=== PATIENT | male | born 1950 | race Caucasian/White ===

== ENCOUNTER 2024-05-21 18:30 | Emergency (ER) | payer MEDICARE, BC, SELFPAY ==
[2024-05-21 17:54] LABS: % Basophils 0.6 % (0-2); % Eosinophils 1.9 % (0-6); % Immature Granulocytes 0.2 % (0-0.5); % Lymphocytes 18.6 % (20.5-51.1); % Monocytes 11.4 % (1.7-9.3); % Neutrophils 67.3 % (42.2-75.2); Absolute Eosinophils 0.1 10^3/uL (0-0.7); Absolute Monocytes 0.6 10^3/uL (0.1-0.6); Absolute Neutrophils 3.6 10^3/uL (1.4-6.5); Hematocrit 40.2 % (39.0-52.0); Mean Corp Hgb Conc. 34.8 g/dL (33.0-37.0); Mean Corpuscular Hgb 31.5 pg (27.0-31.0); Mean Corpuscular Volume 90.5 fL (80.0-94.0); Mean Platelet Volume 9.4 fL (7.4-10.4); Nucleated Red Blood Cells % 0 % (-); Platelet Count 174 10^3/uL (130-400); Red Blood Cell Count 4.44 10^6/uL (4.70-6.10); Red Cell Dist. Width 13.1 % (11.5-14.5); White Blood Cell Count 5.3 10^3/uL (4.8-10.8)
[2024-05-21 18:00] VITALS: BP 129/72
[2024-05-21 18:10] LABS: ALT (SGPT) 40 U/L (0-50); AST (SGOT) 39 U/L (17-59); Alkaline Phosphatase 62 U/L (38-126); Blood Urea Nitrogen 33 mg/dl (9-20); Calcium 9.7 mg/dl (8.4-10.2); Carbon Dioxide 29 mmol/L (22-30); Chloride 105 mmol/L (98-107); Estimated Creatinine Clearance 58 ml/min; Glucose 110 mg/dl (70-99); Potassium 3.9 mmol/L (3.5-5.1); Sodium 140 mmol/L (135-145); Total Bilirubin 0.6 mg/dl (0.2-1.3); Total Protein 6.7 g/dl (6.3-8.2); eGFR > 60.00
[2024-05-21 19:00] VITALS: BP 167/68
[2024-05-21 19:54] LABS: Troponin I < 0.012 ng/ml
--- NOTE | 2024-05-21 20:07 | ED.GENMED ---
History of Present Illness
<Clayton Cueto DO, Resident - Last Filed: 05/21/24 21:36>
General
Chief Complaint: Fainting/Passed Out
Source: patient and family
Time Seen by Provider: 05/21/24 19:45
History of Present Illness
History of Present Illness:
74-year-old male past medical history significant for previous syncopal episodes, hyperlipidemia and hypertension presents for a presumed syncopal episode. Patient reports this episode was witnessed where he fell onto his face. Patient reports not
taking any blood thinners. Patient reports that he was not eating or drinking much today, he felt a prodrome of flushing throughout his body he then went to walk outside to get some fresh air and then he subsequently passed out. Family reports
patient was diaphoretic after fainting and he regained consciousness within a few minutes. Patient reports he does not remember what happened however family reports that he was speaking to during this time. Family denies any tonic-clonic
movements, no tongue biting, no loss of bowel or bladder. Patient reports having previous syncopal episodes and he reports that these episodes felt similar to this. As for now patient is only reporting slight facial pain.
Past History
<Clayton Cueto DO, Resident - Last Filed: 05/21/24 21:36>
Past History
ED Past Medical History: HTN, Hypercholesterolemia and Other (Previous syncopal episodes)
Review of Systems
<Clayton Cueto DO, Resident - Last Filed: 05/21/24 21:36>
Review of Systems
Constitutional: Reports other (Flushing and diaphoresis)
EENT: Reports other (Nose pain)
Respiratory: Reports no symptoms
Cardiac: Reports no symptoms
ABD/GI: Reports no symptoms
Musculoskeletal: Reports no symptoms
Phy Exam
<Clayton Cueto DO, Resident - Last Filed: 05/21/24 21:36>
General Physical Exam
General Presentation: well appearing and no apparent distress
General Skin: warm and dry
ENT Exam
ENT Exam: other (Laceration present over nasal bridge covered by bandage. Facial bones are nontender, nasal bridge nontender to palpation.)
Cardiovascular Exam
Cardiovascular Exam: regular rate/rhythm, no edema and no murmur
Pulmonary Exam
Pulmonary Exam: lungs clear, no respiratory distress and no crackles
Gastrointestinal Exam
Gastrointestinal Exam: non tender, soft and non distended
Neurological Exam
Neurological Exam: alert, oriented x3, no motor deficits, no sensory deficits and speech normal
Course
<Clayton Cueto DO, Resident - Last Filed: 05/21/24 21:36>
Orders/Labs/Results
Orders:
Orders
05/21/24 17:46
Electrocardiogram (*1) Urgent
Reason for Study: Abdominal Pain
EKG- Treatment ONCE
05/21/24 17:47
Complete Blood Count/With Diff Urgent
Comprehensive Metabolic Panel Urgent
05/21/24 19:24
Troponin I Urgent
05/21/24 20:26
CT Head W/o Iv Contrast Urgent
Comment: please include nasal bridge
Reason For Exam: hit head from standing, nasal bridge pain
Abnormal Lab Results
05/21/24
17:47
RBC 4.44 L 10^6/uL
(4.70-6.10)
MCH 31.5 H pg
(27.0-31.0)
Absolute Lymphs (auto) 1.0 L 10^3/uL
(1.2-3.4)
Lymphocytes % 18.6 L %
(20.5-51.1)
Monocytes % 11.4 H %
(1.7-9.3)
BUN 33 H mg/dl
(9-20)
Glucose 110 H mg/dl
(70-99)
05/21/24 17:47
05/21/24 17:47
Vital Signs
Initial and Last Documented VS:
Initial Vital Signs
Temp Pulse Ox
97.5 F 97
05/21/24 17:41 05/21/24 17:41
Last Documented Vital Signs
Temp Pulse Ox
97.5 F 97
05/21/24 17:41 05/21/24 17:41
<Tyesha De Luna MD - Last Filed: 05/21/24 20:30>
Orders/Labs/Results
Orders:
Orders
05/21/24 17:46
Electrocardiogram (*1) Urgent
Reason for Study: Abdominal Pain
EKG- Treatment ONCE
05/21/24 17:47
Complete Blood Count/With Diff Urgent
Comprehensive Metabolic Panel Urgent
05/21/24 19:24
Troponin I Urgent
05/21/24 20:26
CT Head W/o Iv Contrast Urgent
Comment: please include nasal bridge
Reason For Exam: hit head from standing, nasal bridge pain
Abnormal Lab Results
05/21/24
17:47
RBC 4.44 L 10^6/uL
(4.70-6.10)
MCH 31.5 H pg
(27.0-31.0)
Absolute Lymphs (auto) 1.0 L 10^3/uL
(1.2-3.4)
Lymphocytes % 18.6 L %
(20.5-51.1)
Monocytes % 11.4 H %
(1.7-9.3)
BUN 33 H mg/dl
(9-20)
Glucose 110 H mg/dl
(70-99)
05/21/24 17:47
05/21/24 17:47
Vital Signs
Initial and Last Documented VS:
Initial Vital Signs
Temp Pulse Ox
97.5 F 97
05/21/24 17:41 05/21/24 17:41
Last Documented Vital Signs
Temp Pulse Ox
97.5 F 97
05/21/24 17:41 05/21/24 17:41
<Clayton Cueto DO, Resident - Last Filed: 05/21/24 21:36>
MDM/Problems Addressed
Differential Diagnosis Includes:
Vasovagal syncope, orthostatic hypotension, dehydration
MDM/Problems Addressed:
74-year-old male past medical history of previous syncopal episodes, hypertension, hyperlipidemia presents for a presumed syncopal episode where he fell onto his face from a standing position
Etiology of syncope is likely secondary to dehydration, reports he was not eating or drinking much today. No symptoms of orthostasis
Fall was witnessed, patient reports not taking blood thinners. Patient does have a laceration on the nasal bridge
Syncope had prodrome of flushing, afterwards patient was diaphoretic. Patient also reports he is not remember the event, family reports he was speaking during and he regained consciousness within a couple minutes
They deny any bowel or bladder incontinence, no tongue biting, no tonic-clonic movements. Suspicion for seizure extremely low
EKG demonstrated no ischemic changes or arrhythmia, troponins within normal limits
Chemistry and hematology within normal limits
Patient had episodes of syncope in the past, he reports that his symptoms were similar to previous episodes
Patient denies headache, changes in vision, difficulty concentrating, photophobia. Do not believe patient has clinical symptoms of a concussion
Would like to order a CT head noncontrast to evaluate for any hematoma or bleed
Patient is very hesitant about any sort of medical intervention, patient is respectfully stating he would like to go home as it is [facility]
Was able to convince patient to get a stat CT head, will check nasal bridge during CT for any fracture
CT head and contrast demonstrated no intracranial hemorrhage and no nasal bone fracture
Offered IV fluids, patient respectfully declined and said he would drink fluids orally
<Clayton Cueto DO, Resident - Last Filed: 05/21/24 21:36>
*Critical Care Note
Total Time (30-74mins, 75-104mins- exclusive of procedures): Not Applicable
ED Attending Note
<Clayton Cueto DO, Resident - Last Filed: 05/21/24 21:36>
-
Portions of this chart may have been created with voice recognition software.� Occasional wrong word or��sound alike� substitutions may have occurred due to the inherent limitations of voice recognition software.
<Tyesha De Luna MD - Last Filed: 05/21/24 20:30>
ED Attending Note
Patient seen and examined by attending physician: Yes
I performed a history and physical exam of patient and discussed management with resident, I reviewed resident's note and agree with documented findings and plan of care.: Yes
ED Attending Note:
Patient complained of feeling warm and nauseous prior to his syncopal episode. History and symptoms sound consistent with vasovagal syncope. Patient adamantly wants to go home and does not want a wait any longer in the ED. Patient offered IV
fluids and orthostatic vital signs but adamantly declines. Patient encouraged to make sure he drinks and eats later to stay hydrated. Additionally, I had to beg patient to stay for CT head and explained that due to his age and falling several feet
onto hardwood, I felt it was important. However, patient does deny headache, neck pain and vision changes. 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 EKG does not appear ischemic and troponin is normal. Patient willing
to get a CT head if we do it immediately. Awaiting patient CT head at this time.
Discharge Plan
Departure
Patient Disposition: Home (Routine Discharge)
Date of Disposition: 05/21/24
Time of Disposition: 21:18
Patient with high blood pressure during this ER visit?: No
Discharge Problem:
Syncope, vasovagal, Nasal bone contusion, Acute dehydration, CHI (closed head injury)
Instructions: Syncope (Fainting) (DC), Head injury observation in adults
Referrals:
UNKNOWN - PT DOES,NOT KNOW [Family Provider] -
Activity Restrictions/Additional Instructions:
Please follow-up with your primary care physician, call in 1 to 3 days for an appointment.
Please use Tylenol by mouth as needed for pain
Please drink plenty of fluids orally
Please return if your symptoms persist, or return with any severe headache or vomiting. Thank you for choosing [facility] and enjoy the holidays!
Interventions
Interventions:
*Risk Screen - Suicide Last Done: 05/21/24 17:41
*General Assessment Last Done: 05/21/24 17:41
*Neglect/Abuse Screening Last Done: 05/21/24 17:41
Discharge Date and Time
Print Language: [place]
[2024-05-21 21:00] VITALS: BP 137/79
== END 2024-05-21 21:43 | disposition home or self-care (01) ==
LOC: EMR 18:30
PROVIDERS: Student in an Organized Health Care Education/Training Program; EMERGENCY PHYSICIAN Emergency Medicine
DX: R55 Syncope and collapse (principal); S09.90XA Unspecified injury of head, initial encounter; E86.0 Dehydration; S01.21XA Laceration without foreign body of nose, initial encounter; W19.XXXA Unspecified fall, initial encounter; R10.9 Unspecified abdominal pain
CPT/HCPCS: 99285; 70450; 80053; 84484; 85025; 93005